=== PATIENT | male | born 1965 | race Caucasian/White ===

== ENCOUNTER 2016-07-20 12:36 | Emergency (ER) | payer OTHER ==
[2016-07-20] MEDS ORDERED: XYLOCAINE 1% HCL 20 ML MDV ONE (12:55)
--- NOTE | 2016-07-20 13:23 | ERPHSYRPT ---
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 Small 1cm lac with some bleeding, but controlled with pressure. No numbness, tingling or weakness distally. Tetanus 2 years ago. Occurred: just prior to arrival Method of Injury: incised Quality: intermittent Severity of Pain-Max: mild Severity of Pain-Current: mild Extremities Pain Location: forearm: left Modifying Factors: Improves With: nothing Associated Symptoms: none Allergies/Adverse Reactions: No Known Drug Allergies Allergy (Unverified 07/20/16 12:50) Home Medications: No Reportable Medications [No Reported Medications] 07/20/16 [History] Hx Tetanus, Diphtheria Vaccination/Date Given: Yes (2) Hx Influenza Vaccination/Date Given: No Hx Pneumococcal Vaccination/Date Given: No Immunizations Up to Date: Yes - Review of Systems Constitutional: No Fever, No Chills Eyes: No Symptoms Ears, Nose, & Throat: No Symptoms Respiratory: No Cough, No Dyspnea Cardiac: No Chest Pain, No Edema, No Syncope Abdominal/Gastrointestinal: No Abdominal Pain, No Nausea, No Vomiting, No Diarrhea Genitourinary Symptoms: No Dysuria Musculoskeletal: No Back Pain, No Neck Pain Skin: No Rash Neurological: No Dizziness, No Focal Weakness, No Sensory Changes Psychological: No Symptoms Endocrine: No Symptoms All Other Systems: Reviewed and Negative - Past Medical History Pertinent Past Medical History: No - Past Surgical History Past Surgical History: Yes Gastrointestinal: Hernia Repair - Social History Smoking Status: Current some day smoker Exposure to second hand smoke: Yes Drug Use: none Patient Lives Alone: No - Nursing Vital Signs Nursing Vital Signs: Initial Vital Signs Temperature 97.2 F Temperature Source Oral Pulse Rate 102 Respiratory Rate 16 Blood Pressure [Right Arm] 120/83 Pain Intensity 8 - Physical Exam General Appearance: alert Eyes, Ears, Nose, Throat Exam: moist mucous membranes Neck Exam: non-tender, supple Cardiovascular/Respiratory Exam: chest non-tender, normal breath sounds, regular rate/rhythm, no respiratory distress Abdominal Exam: non-tender, No guarding Back Exam: normal inspection, No vertebral tenderness Shoulder Exam: normal inspection Elbow/Forearm Exam: normal ROM Wrist Exam: normal inspection Hand Exam: normal inspection Neuro/Tendon Exam: normal sensation, normal motor functions Mental Status Exam: alert, oriented x 3, cooperative Skin Exam: normal color, warm, dry, laceration (L forearm 1 cm superficial lac with minimal bleeding.), other (neurovascularly intact) SpO2 Interpretation: normal SpO2: 94 Oxygen Delivery: Room Air Procedures - Laceration/Wound Repair Left Lower Arm Wound Location: Left, lower arm Wound Length (cm): 1.5 Wound's Depth, Shape: superficial Wound Explored: clean Irrigated: Yes Hibiclens Prep: Yes Anesthesia: local, 1% Lidocaine Volume Anesthetic (ccs): 6 Wound Debrided: minimal Wound Repaired With: sutures Suture Size/Type: 4-0, nylon Number of Sutures: 5 Layer Closure?: No Progress: 07/20/16 13:24 Cauterizer used minimally to stop bleeding. Procedure performed without any complications - Course Nursing assessment & vital signs reviewed: Yes Ordered Tests: Medication Summary Discontinued Medications Generic Name Dose Route Start Last Admin Trade Name Kevin PRN Reason Stop Dose Admin Lidocaine HCl Confirm 07/20/16 12:55 Xylocaine 1% Hcl 20 Ml Mdv Administered 07/20/16 12:56 Dose 5 ml .ROUTE .[email or web address] - Progress Progress: improved Counseled pt/family regarding: diagnosis - Departure Time of Disposition: 13:25 Departure Disposition: Home Clinical Impression: Laceration of forearm, left Condition: Stable Critical Care Time: No Instructions: Care for a Laceration After Repair, Laceration Repair Additional Instructions: Motrin or Tylenol for pain Sutures remove in 7-10 days Return for worse bleeding, pain, pus from site, fever or any problems
[2016-07-20] MEDS ORDERED: XYLOCAINE 1% HCL 20 ML MDV IJ ONE (13:25)
[2016-07-20 13:33] VITALS: BP 135/88; PULSE 90; O2SAT 97
== END 2016-07-20 13:32 | disposition home or self-care (01) ==
LOC: ED 12:36
PROC: 0HQEXZZ Repair Left Lower Arm Skin, External Approach (ICD-10-PCS; principal; 2016-07-20)
DX: S51.812A Laceration without foreign body of left forearm, initial encounter (principal); W26.0XXA Contact with knife, initial encounter
CPT/HCPCS: 12001; 99283